=== PATIENT | female | born 1945 | race Caucasian/White ===

== ENCOUNTER → 2019-06-27 12:49 | Outpatient (BNVA) | payer MEDICARE, OTHER, SELFPAY | PROVIDERS: Family Provider Internal Medicine; PCP Internal Medicine; Referring Provider Internal Medicine Rheumatology; Visit Provider Internal Medicine Rheumatology | DX: M05.79 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 systems involvement (principal); Z79.899 Other long term (current) drug therapy | CPT/HCPCS: 36415; 82565; 84460; 85025; 85651; 86140 ==

== ENCOUNTER → 2019-07-06 08:48 | Outpatient (BNVA) | payer MEDICARE, OTHER, SELFPAY | PROVIDERS: Family Provider Internal Medicine; PCP Internal Medicine; Referring Provider Internal Medicine; Visit Provider Internal Medicine Rheumatology | DX: M05.79 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 systems involvement (principal); Z79.899 Other long term (current) drug therapy | CPT/HCPCS: 99213 ==

== ENCOUNTER → 2019-11-13 10:16 | Outpatient (BNVA) | payer MEDICARE, OTHER, SELFPAY | PROVIDERS: Family Provider Internal Medicine; PCP Internal Medicine; Visit Provider Internal Medicine Rheumatology | DX: Z79.899 Other long term (current) drug therapy (principal) | CPT/HCPCS: 36415; 80076; 82565; 85025; 85651; 86140 ==

== ENCOUNTER → 2019-11-26 14:58 | Outpatient (BNVA) | payer MEDICARE, OTHER, SELFPAY | PROVIDERS: Family Provider Internal Medicine; PCP Internal Medicine; Visit Provider Internal Medicine | DX: M05.79 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 systems involvement (principal); Z79.899 Other long term (current) drug therapy; F17.210 Nicotine dependence, cigarettes, uncomplicated; D72.819 Decreased white blood cell count, unspecified | CPT/HCPCS: 99213 ==

== ENCOUNTER → 2019-12-03 09:24 | Outpatient (BNVA) | payer MEDICARE, OTHER, SELFPAY | PROVIDERS: Family Provider Internal Medicine; PCP Internal Medicine; Referring Provider Internal Medicine; Visit Provider Anesthesiology Pain Medicine | DX: M51.36 Other intervertebral disc degeneration, lumbar region (principal); M47.816 Spondylosis without myelopathy or radiculopathy, lumbar region; M25.559 Pain in unspecified hip; M62.830 Muscle spasm of back; Z79.891 Long term (current) use of opiate analgesic | CPT/HCPCS: 99204 ==

== ENCOUNTER → 2019-12-17 12:36 | Outpatient (BNVA) | payer MEDICARE, OTHER, SELFPAY | PROVIDERS: Family Provider Internal Medicine; PCP Internal Medicine; Visit Provider Anesthesiology Pain Medicine | DX: M51.36 Other intervertebral disc degeneration, lumbar region (principal); F17.210 Nicotine dependence, cigarettes, uncomplicated | CPT/HCPCS: 64483; 64484; J1040; J3490 ==

== ENCOUNTER → 2019-12-31 11:20 | Outpatient (BNVA) | payer MEDICARE, OTHER, SELFPAY | PROVIDERS: Family Provider Internal Medicine; PCP Internal Medicine; Visit Provider Anesthesiology Pain Medicine | DX: M51.36 Other intervertebral disc degeneration, lumbar region (principal); M47.816 Spondylosis without myelopathy or radiculopathy, lumbar region; M25.559 Pain in unspecified hip; M62.830 Muscle spasm of back; F17.210 Nicotine dependence, cigarettes, uncomplicated | CPT/HCPCS: 99213 ==

== ENCOUNTER → 2020-01-28 11:14 | Outpatient (BNVA) | payer MEDICARE, OTHER, SELFPAY | PROVIDERS: Family Provider Internal Medicine; PCP Internal Medicine; Referring Provider Internal Medicine; Visit Provider Dermatology | DX: Z12.83 Encounter for screening for malignant neoplasm of skin (principal); Z85.828 Personal history of other malignant neoplasm of skin; Z92.89 Personal history of other medical treatment; L82.1 Other seborrheic keratosis; L82.0 Inflamed seborrheic keratosis; D18.01 Hemangioma of skin and subcutaneous tissue | CPT/HCPCS: 17000; 17003; 99203 ==

== ENCOUNTER → 2020-02-27 12:57 | Outpatient (BNVA) | payer MEDICARE, OTHER, SELFPAY | PROVIDERS: Family Provider Internal Medicine; PCP Internal Medicine; Visit Provider Internal Medicine Rheumatology | DX: Z79.899 Other long term (current) drug therapy (principal); M05.79 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 systems involvement | CPT/HCPCS: 36415; 80053; 82784; 85025; 85651; 86140 ==

== ENCOUNTER → 2020-03-05 12:50 | Outpatient (BNVA) | payer MEDICARE, OTHER, SELFPAY | PROVIDERS: Family Provider Internal Medicine; PCP Internal Medicine; Visit Provider Internal Medicine | DX: M05.79 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 systems involvement (principal); F17.210 Nicotine dependence, cigarettes, uncomplicated; Z79.899 Other long term (current) drug therapy | CPT/HCPCS: 99213 ==

== ENCOUNTER → 2020-06-25 10:56 | Outpatient (BNVA) | payer MEDICARE, OTHER, SELFPAY | PROVIDERS: Family Provider Internal Medicine; PCP Internal Medicine; Visit Provider Internal Medicine Rheumatology | DX: Z79.899 Other long term (current) drug therapy (principal) | CPT/HCPCS: 36415; 80053; 85025; 85651; 86140 ==

== ENCOUNTER → 2020-07-01 12:28 | Outpatient (BNVA) | payer MEDICARE, OTHER, SELFPAY | PROVIDERS: Family Provider Internal Medicine; PCP Internal Medicine; Visit Provider Internal Medicine | DX: M05.79 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 systems involvement (principal); Z79.899 Other long term (current) drug therapy; D72.819 Decreased white blood cell count, unspecified; F17.210 Nicotine dependence, cigarettes, uncomplicated | CPT/HCPCS: 99213 ==

== ENCOUNTER → 2020-10-03 10:17 | Outpatient (BNVA) | payer MEDICARE, OTHER, SELFPAY | PROVIDERS: Family Provider Internal Medicine; PCP Internal Medicine; Visit Provider Internal Medicine | DX: M05.79 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 systems involvement (principal); D72.819 Decreased white blood cell count, unspecified; F17.210 Nicotine dependence, cigarettes, uncomplicated | CPT/HCPCS: 36415; 80053; 85025; 86140; 99214 ==

== ENCOUNTER → 2020-12-09 10:54 | Outpatient (BNVA) | payer MEDICARE, OTHER, SELFPAY | PROVIDERS: Family Provider Internal Medicine; PCP Internal Medicine; Visit Provider Internal Medicine | DX: M05.79 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 systems involvement (principal); M47.816 Spondylosis without myelopathy or radiculopathy, lumbar region; Z79.899 Other long term (current) drug therapy | CPT/HCPCS: 36415; 80053; 85025; 85651; 86140 ==

== ENCOUNTER → 2020-12-16 12:33 | Outpatient (BNVA) | payer MEDICARE, OTHER, SELFPAY | PROVIDERS: Family Provider Internal Medicine; PCP Internal Medicine; Visit Provider Internal Medicine | DX: M05.79 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 systems involvement (principal); M51.36 Other intervertebral disc degeneration, lumbar region; F17.210 Nicotine dependence, cigarettes, uncomplicated | CPT/HCPCS: 99213; 99214 ==

== ENCOUNTER → 2021-04-22 12:42 | Outpatient (BNVA) | payer MEDICARE, OTHER, SELFPAY | PROVIDERS: Family Provider Internal Medicine; PCP Internal Medicine; Visit Provider Internal Medicine | DX: D72.819 Decreased white blood cell count, unspecified (principal); M47.816 Spondylosis without myelopathy or radiculopathy, lumbar region; M05.79 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 systems involvement; Z79.899 Other long term (current) drug therapy | CPT/HCPCS: 80053; 85025; 85651; 86140 ==

== ENCOUNTER → 2021-05-11 12:54 | Outpatient (BNVA) | payer MEDICARE, OTHER, SELFPAY | PROVIDERS: Family Provider Internal Medicine; PCP Internal Medicine; Visit Provider Internal Medicine | DX: M05.79 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 systems involvement (principal); Z79.899 Other long term (current) drug therapy; F17.210 Nicotine dependence, cigarettes, uncomplicated | CPT/HCPCS: 99214 ==

== ENCOUNTER 2021-05-11 13:40 | Outpatient (CLI) | payer MEDICARE, OTHER, SELFPAY ==
--- NOTE | 2021-05-11 13:47 | XR_ITS ---
WS: [id number] SACROILIAC JOINTS TECHNIQUE: AP and oblique imaging is submitted. HISTORY: L40.9 - Psoriasis, unspecified COMPARISON: 02/28/2018 Normal appearance of the SI joints with no sclerosis or erosions. No bone destruction. No soft tissue abnormality. XR/XR sacroiliac jts m 3V [id number] IMPRESSION: No erosions or widening of the SI joints or fusion.
--- NOTE | 2021-05-11 13:47 | XR_ITS ---
WS: [id number] LUMBAR SPINE: 3 VIEWS TECHNIQUE: AP, lateral and L5-S1 spot. HISTORY: M25.559 - Pain in unspecified hip COMPARISON: 02/28/2018 Moderate rotoscoliosis to the RIGHT of the lumbar spine. Severe asymmetric disc space narrowing most significant at L3-4 and L4-5. Marked facet joint arthritis and disc space narrowing throughout. No fr actures. Diffuse osteopenia. No soft tissue mass. SI joints are symmetric bilaterally. No soft tissue abnormalities. Extensive atherosclerosis aorta. XR/XR lumbar spine 2-3V* [id number] IMPRESSION: Marked degenerative rotoscoliosis of the lumbar spine to the RIGHT with asymmet ansley disc space narrowing. No fracture.
--- NOTE | 2021-05-11 13:47 | XR_ITS ---
WS: [id number] LEFT HAND: 2 VIEW(S) TECHNIQUE: PA and lateral. HISTORY: M25.559 - Pain in unspecified hip COMPARISON: None available. Mild diffuse interphalangeal joint space narrowing. No erosion or subluxation. Mild narrowing of the radiocarpal joint. No soft tissue edema. No soft tissue or bone abnormality. XR/XR hand LT 2V [id number] IMPRESSION: Mild osteoarthritis.
--- NOTE | 2021-05-11 13:47 | XR_ITS ---
WS: [id number] RIGHT HAND: 2 VIEW(S) TECHNIQUE: PA and lateral. HISTORY: M25.559 - Pain in unspecified hip COMPARISON: None available. Mild interphalangeal joint space narrowing. No soft tissue edema or swelling. Mild degenerative vann es and joint space narrowing and subluxation at the first CMC joint. No soft tissue or bone abnormality. 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
== END 2021-05-11 13:41 | disposition home or self-care (01) ==
PROVIDERS: PCP Internal Medicine; Visit Provider Internal Medicine
DX: L40.9 Psoriasis, unspecified (principal); M25.559 Pain in unspecified hip
CPT/HCPCS: 72100; 72202; 73120

== ENCOUNTER 2021-09-21 08:46 | Outpatient (CLI) | payer MEDICARE, OTHER, SELFPAY ==
[2021-09-21 09:14] LABS: Basophils % 0.3 %; Eosinophils # 0.2 10^3/uL (0.0-0.8); Eosinophils % 4.7 %; Hematocrit 46.8 % (37.0-47.0); Hemoglobin 15.8 g/dL (11.5-15.3); Lymphocytes # 1.4 10^3/uL (0.8-4.8); Lymphocytes % 37.7 %; Mean Corpuscular HGB Conc 33.8 g/dL (30.0-36.0); Mean Corpuscular Hemoglobin 31.7 pg (28.0-34.0); Mean Corpuscular Volume 93.8 fl (81-99); Mean Platelet Volume 9.2 fL (7.4-10.4); Monocytes # 0.3 10^3/uL (0.2-0.9); Monocytes % 8.3 %; Neutrophils # 1.77 10^3/uL (1.8-7.7); Nucleated Red Blood Cells % 0 %; Platelet Count 218 10^3/cmm (130-400); Red Blood Count 4.99 10^6/uL (4.1-5.3); Red Cell Distribution Width 12.9 % (12.1-15.1); White Blood Count 3.6 10^3/uL (4.0-10.0)
[2021-09-21 09:42] LABS: Alanine Aminotransferase 23 U/L (0-33); Albumin Level 4.3 g/dL (3.5-5.2); Alkaline Phosphatase 47 IU/L (35-105); Aspartate Amino Transferase 19 U/L (0-32); Blood Urea Nitrogen 13 mg/dL (8-23); Calcium 9.5 mg/dL (8.5-10.5); Carbon Dioxide 25 mmol/L (22-29); Chloride 104 mmol/L (98-107); Glucose 138 mg/dL (65-115); Osmolality Calculated 288 mOsm/kg (285-295); Sodium 138 mmol/L (136-145); Total Bilirubin 0.4 mg/dL (0.15-1.2); Total Protein 7.3 g/dL (6.6-8.7)
[2021-09-21 09:47] LABS: Anion Gap 13.3 (5-19); Potassium 4.3 mmol/L (3.5-5.1)
[2021-09-21 10:08] LABS: Erythrocyte Sedimentation Rate 9 mm/hr (0-15)
== END 2021-09-21 08:47 | disposition home or self-care (01) ==
LOC: LAB 08:50
PROVIDERS: PCP Internal Medicine; Visit Provider Internal Medicine
DX: D72.819 Decreased white blood cell count, unspecified (principal); M05.79 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 systems involvement; M47.816 Spondylosis without myelopathy or radiculopathy, lumbar region; Z79.899 Other long term (current) drug therapy
CPT/HCPCS: 80053; 85025; 85651; 86140

== ENCOUNTER → 2021-09-30 11:04 | Outpatient (BNVA) | payer MEDICARE, OTHER, SELFPAY | PROVIDERS: PCP Internal Medicine; Visit Provider Internal Medicine | DX: M05.79 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 systems involvement (principal); Z79.899 Other long term (current) drug therapy; F41.9 Anxiety disorder, unspecified; Z92.21 Personal history of antineoplastic chemotherapy; F17.210 Nicotine dependence, cigarettes, uncomplicated | CPT/HCPCS: 99214 ==

== ENCOUNTER 2022-03-16 09:02 | Outpatient (CLI) | payer MEDICARE, OTHER, SELFPAY ==
[2022-03-16 09:24] LABS: Basophils % 0.5 %; Eosinophils # 0.2 10^3/uL (0.0-0.8); Eosinophils % 4.8 %; Hematocrit 46.8 % (37.0-47.0); Hemoglobin 15.7 g/dL (11.5-15.3); Lymphocytes # 1.5 10^3/uL (0.8-4.8); Lymphocytes % 33.7 %; Mean Corpuscular HGB Conc 33.5 g/dL (30.0-36.0); Mean Corpuscular Hemoglobin 31.4 pg (28.0-34.0); Mean Corpuscular Volume 93.6 fl (81-99); Mean Platelet Volume 9.1 fL (7.4-10.4); Monocytes # 0.5 10^3/uL (0.2-0.9); Monocytes % 10.3 %; Neutrophils % 50.5 %; Nucleated Red Blood Cells % 0 %; Platelet Count 225 10^3/cmm (130-400); Red Cell Distribution Width 13.2 % (12.1-15.1); White Blood Count 4.4 10^3/uL (4.0-10.0)
[2022-03-16 09:27] LABS: Erythrocyte Sedimentation Rate 8 mm/hr (0-15)
[2022-03-16 09:56] LABS: Alanine Aminotransferase 20 U/L (0-33); Albumin Level 4.4 g/dL (3.5-5.2); Alkaline Phosphatase 52 U/L (35-105); Anion Gap 14.3 (5-19); Aspartate Amino Transferase 16 U/L (0-32); Blood Urea Nitrogen 14 mg/dL (8-23); Calcium 9.5 mg/dL (8.5-10.5); Carbon Dioxide 25 mmol/L (22-29); Chloride 103 mmol/L (98-107); Globulin 2.3 g/dL (1.3-4.6); Glucose 97 mg/dL (65-115); Osmolality Calculated 286 mOsm/kg (285-295); Potassium 4.3 mmol/L (3.5-5.1); Sodium 138 mmol/L (136-145); Total Bilirubin 0.5 mg/dL (0.15-1.2); Total Protein 6.7 g/dL (6.6-8.7)
== END 2022-03-16 09:03 | disposition home or self-care (01) ==
LOC: LAB 09:06
PROVIDERS: PCP Internal Medicine; Visit Provider Internal Medicine
DX: M05.79 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 systems involvement (principal); Z79.899 Other long term (current) drug therapy
CPT/HCPCS: 36415; 80053; 85025; 85651; 86140

== ENCOUNTER → 2022-03-17 11:06 | Outpatient (BNVA) | payer MEDICARE, OTHER, SELFPAY | PROVIDERS: PCP Internal Medicine; Visit Provider Internal Medicine | DX: M05.79 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 systems involvement (principal); Z79.899 Other long term (current) drug therapy; F41.9 Anxiety disorder, unspecified | CPT/HCPCS: 99214 ==

== ENCOUNTER 2022-08-10 09:41 | Outpatient (CLI) | payer MEDICARE, OTHER, SELFPAY ==
[2022-08-10 10:43] LABS: Basophils % 0.3 %; Eosinophils # 0.1 10^3/uL (0.0-0.8); Eosinophils % 3.9 %; Lymphocytes # 1.1 10^3/uL (0.8-4.8); Lymphocytes % 33.6 %; Mean Corpuscular HGB Conc 34.1 g/dL (30.0-36.0); Mean Corpuscular Hemoglobin 31.3 pg (28.0-34.0); Mean Corpuscular Volume 91.7 fl (81-99); Mean Platelet Volume 9.1 fL (7.4-10.4); Monocytes # 0.3 10^3/uL (0.2-0.9); Monocytes % 8.9 %; Neutrophils # 1.78 10^3/uL (1.8-7.7); Nucleated Red Blood Cells % 0 %; Platelet Count 210 10^3/cmm (130-400); Red Cell Distribution Width 12.9 % (12.1-15.1); White Blood Count 3.4 10^3/uL (4.0-10.0)
[2022-08-10 11:01] LABS: Erythrocyte Sedimentation Rate 9 mm/hr (0-15)
[2022-08-10 11:10] LABS: Alanine Aminotransferase 21 U/L (0-33); Albumin Level 4.2 g/dL (3.5-5.2); Alkaline Phosphatase 48 U/L (35-105); Anion Gap 16.2 (5-19); Aspartate Amino Transferase 19 U/L (0-32); Blood Urea Nitrogen 15 mg/dL (8-23); Calcium 9.3 mg/dL (8.5-10.5); Carbon Dioxide 24 mmol/L (22-29); Chloride 101 mmol/L (98-107); Globulin 2.5 g/dL (1.3-4.6); Glucose 118 mg/dL (65-115); Osmolality Calculated 286 mOsm/kg (285-295); Potassium 4.2 mmol/L (3.5-5.1); Sodium 137 mmol/L (136-145); Total Bilirubin 0.6 mg/dL (0.15-1.2); Total Protein 6.7 g/dL (6.6-8.7)
== END 2022-08-10 09:42 | disposition home or self-care (01) ==
PROVIDERS: PCP Internal Medicine; Visit Provider Internal Medicine
DX: M05.79 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 systems involvement (principal)
CPT/HCPCS: 80053; 85025; 85651; 86140

== ENCOUNTER → 2022-08-31 14:00 | Outpatient (BNVA) | payer MEDICARE, OTHER, SELFPAY | PROVIDERS: PCP Internal Medicine; Visit Provider Internal Medicine | DX: M05.79 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 systems involvement (principal); Z79.899 Other long term (current) drug therapy; D72.819 Decreased white blood cell count, unspecified | CPT/HCPCS: 99213 ==

== ENCOUNTER 2023-02-07 09:27 | Outpatient (CLI) | payer MEDICARE, OTHER, SELFPAY ==
[2023-02-07 10:17] LABS: Basophils % 0.6 %; Eosinophils # 0.2 10^3/uL (0.0-0.8); Eosinophils % 4.9 %; Hematocrit 46.4 % (36-47); Lymphocytes # 1.3 10^3/uL (0.8-4.8); Lymphocytes % 38.7 %; Mean Corpuscular HGB Conc 33.4 g/dL (30-55); Mean Corpuscular Hemoglobin 30.1 pg (27-33); Mean Corpuscular Volume 90.1 fl (85-98); Mean Platelet Volume 9.3 fL (7.4-10.4); Monocytes # 0.3 10^3/uL (0.2-0.9); Monocytes % 10.1 %; Neutrophils % 45.7 %; Nucleated Red Blood Cells % 0 %; Platelet Count 228 10^3/cmm (157-399); Red Blood Count 5.15 10^6/uL (3.85-5.65); Red Cell Distribution Width 13.5 % (12.1-15.1); White Blood Count 3.28 10^3/uL (3.29-11.43)
[2023-02-07 10:30] LABS: Alanine Aminotransferase 16 U/L (0-33); Albumin Level 4.2 g/dL (3.5-5.2); Alkaline Phosphatase 49 U/L (35-105); Anion Gap 12.4 (5-19); Aspartate Amino Transferase 13 U/L (0-32); Blood Urea Nitrogen 13 mg/dL (8-23); Calcium 8.8 mg/dL (8.5-10.5); Carbon Dioxide 26 mmol/L (22-29); Chloride 104 mmol/L (98-107); Globulin 2.6 g/dL (1.3-4.6); Glucose 112 mg/dL (65-115); Osmolality Calculated 287 mOsm/kg (285-295); Potassium 4.4 mmol/L (3.5-5.1); Sodium 138 mmol/L (136-145); Total Bilirubin 0.4 mg/dL (0.15-1.2); Total Protein 6.8 g/dL (6.6-8.7)
[2023-02-07 10:32] LABS: Erythrocyte Sedimentation Rate 10 mm/hr (0-15)
== END 2023-02-07 09:28 | disposition home or self-care (01) ==
PROVIDERS: PCP Internal Medicine; Visit Provider Internal Medicine
DX: M05.79 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 systems involvement (principal); L57.0 Actinic keratosis; L82.0 Inflamed seborrheic keratosis; L82.1 Other seborrheic keratosis; Z85.828 Personal history of other malignant neoplasm of skin; L81.4 Other melanin hyperpigmentation; D22.39 Melanocytic nevi of other parts of face; L98.8 Other specified disorders of the skin and subcutaneous tissue
CPT/HCPCS: 17000; 17110; 36415; 80053; 85025; 85651; 86140; 99213

== ENCOUNTER → 2023-02-16 15:20 | Outpatient (BNVA) | payer MEDICARE, OTHER, SELFPAY | PROVIDERS: PCP Internal Medicine; Visit Provider Internal Medicine | DX: M05.79 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 systems involvement (principal); Z79.899 Other long term (current) drug therapy; D72.819 Decreased white blood cell count, unspecified | CPT/HCPCS: 99214 ==

== ENCOUNTER 2023-04-19 12:52 | Emergency (ER) | payer MEDICARE, OTHER, SELFPAY ==
[2023-04-19] VITALS (15 sets, daily range): BP systolic 152–200; BP diastolic 64–96; PULSE 67–81; RESP 16–98; TEMP 36.6; O2SAT 92–98; BMI 35.5
--- NOTE | 2023-04-19 13:27 | CT_ITS ---
WS: [id number] CT ANGIOGRAM CEREBRAL AND CAROTID ARTERIES HISTORY: Severe headache with memory loss. TECHNIQUE: Noncontrast CT head first performed. CT angiogram is performed of the carotid and cerebral arteries. During arterial injection imaging is obtained from the skull vertex to the aortic arch in 1.25 mm imaging. Coronal and sagittal reformats are submitted. Additional multi planar reformats of t he carotid and cerebral arteries are submitted, MIP imaging also reviewed. NASCET criteria utilized. All CT scans at [facility] use at least one of these dose optimization techniques: automated exposure control; mA and/or kV adjustment per patient size (includes targeted exams where dose is mat ched to clinical indication); or iterative reconstruction. CONTRAST: Omnipaque 350; 100 mL IV. DLP: 1042.92 mGy.cm COMPARISON: None available. No acute intracranial hemorrhage or edema. Mild atrophy and small vessel ischemic disease. Small lacu tobi infarcts in the basal ganglia. Carotid Angiogram: Right carotid: Common carotid artery: Normally arises from the innominate. Scattered plaque and mild intimal thicken ing. Increasing calcified plaque at the bifurcation. Internal carotid artery: Focal calcified plaque at the carotid bifurcation. Stenosis estimated at les s than 50%. External carotid artery: Patent. Left carotid: Common carotid artery: Calcified plaque at the origin. No high-grade stenosis. Increasing plaque towa rds the bifurcation. Mild intimal thickening and calcified plaque distal common carotid arteries, jonelle nosis less than 50%. Internal carotid artery: High-grade stenosis with calcified plaque involving the proximal ICA. Stenos is is calculated at less than 50%. Visually the stenosis is probably closer to 60%. External carotid artery: Patent. Right vertebral artery: Mild atherosclerotic disease. No occlusion. Left vertebral artery: Mildly dominant with a few scattered areas of plaque. Subclavian arteries: Calcified plaque at the origin of the LEFT subclavian artery. Motion artifact li miting evaluation for percent stenosis. No stenosis RIGHT subclavian artery. Upper thorax: Breathing motion artifact. Thyroid gland: 8 mm RIGHT thyroid nodule. Osseous structures: Unremarkable. CEREBRAL ANGIOGRAM: Intracranial vertebral arteries: Small caliber but patent RIGHT vertebral artery. Normal LEFT vertebr al artery. Basilar artery: No significant stenosis or occlusion. No aneurysm. Intracranial Internal carotid arteries: Normal size with scattered plaque. No occlusions. Approaching 50% stenosis of the cavernous carotid arteries. Middle cerebral arteries: Normal. Anterior cerebral arteries and ACOM: Normal. Posterior cerebral arteries and PCOM's: Normal. Dural venous sinuses are normally enhancing. Mastoid air cells: Normal. Paranasal sinuses: Normal. Calvarium: Normal. IMPRESSION: 1. Proximal LEFT ICA cervical carotid artery stenosis approaching 60%. 2. RIGHT ICA stenosis less than 50%. 3. No cerebral aneurysms. 4. No vertebral or carotid dissection.
--- NOTE | 2023-04-19 13:30 | ECG_ITS ---
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 Measurements Intervals [place] Rate: 77 P: 48 WY: 177 QRS: 17 QRSD: 89 T: 75 QT: 389 QTc: 443 Interpretive Statements SINUS RHYTHM POSSIBLE LEFT ATRIAL ENLARGEMENT [-0.1mV P-WAVE IN V1/V2] NONSPECIFIC ST & T-WAVE ABNORMALITY No previous ECG available for comparison Electronically Signed On 04-19-2023 14:09:01 DINKEY LOCOMOTIVE OPERATOR by Mazin Antony M.D. [id number]
--- NOTE | 2023-04-19 13:30 | ED_ITS ---
HPI - Headache General: Chief Complaint: Headache Stated Complaint: headache Time Seen by Provider: 04/19/23 13:19 Source: patient Mode of arrival: ambulatory Limitations: no limitations History of Present Illness: 78-year-old female states that over the last day she has been having a headache began gradually and is worsened states headache and 8 out of 10. She has no history of high blood pressure today and her blood pressure has been running high and she is hypertensive here. She denies any fevers states she had some slight confusion over the last 1 to 2 days. She has been under increased stress as she had a recent in the family. No vomiting no diarrhea she denies any worsening improving factors. Headache was not a sudden onset thunderclap headache Associated symptoms: Deny chest pain, fever(s), nausea, rash or vomiting Review of Systems Const: Denies: fever(s), chills, body aches or change in appetite Eyes: Denies: blurry vision or eye discomfort ENMT: Denies: throat pain or dental pain Card: Denies: chest pain Resp: Denies: dyspnea GI: Denies: abdominal pain, nausea, vomiting or diarrhea Musc: Reports: neck pain; Denies: back pain Skin/Breast: Denies: rash Neuro: Reports: headache(s) Psych: Denies: depression PFSH ED PFSH: Medical History Anxiety Lumbago 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 systems involvement Social History Smoking and tobacco/nicotine status: never used tobacco/nicotine Alcohol intake: current Alcohol intake frequency: holidays/special occasions only Substance/Drug Use: never Lives independently: No Household members: spouse Marital status: Current occupational status: retired Course Vital Signs: Vital signs: Vital Signs Temperature 97.9 F 04/19/23 13:05 Pulse Rate 75 04/19/23 15:59 Respiratory Rate 17 04/19/23 15:59 Blood Pressure 161/78 04/19/23 15:59 Pulse Oximetry 98 04/19/23 15:59 Oxygen Delivery Me thod Room Air 04/19/23 15:14 MDM - Headache Medical Decision Making Patient presents here with a headache along with hypertension. Her headache here is improved CT head and CT angio normal blood pressures improved as well we will start her on metoprolol she is to follow-up with PCP and return if worsening she understands agrees to plan. Medical Records I reviewed the patient's medical records. Lab Data I reviewed the patient's lab results. 04/19/23 13:32 04/19/23 13:32 Laboratory Results WBC 4.21 10^3/uL (3.29-11.43) 04/19/23 13:32 RBC 4.83 10^6/uL (3.85-5.65) 04/19/23 13:32 Hgb 15.20 g/dL (11.27-16.99) 04/19/23 13:32 Hct 43.5 % (36-47) 04/19/23 13:32 MCV 90.1 fl (85-98) 04/19/23 13:32 MCH 31.5 pg (27-33) 04/19/23 13:32 MCHC 34.9 g/dL (30-55) 04/19/23 13:32 RDW 13.8 % (12.1-15.1) 04/19/23 13:32 Plt Count 189 10^3/cmm (157-399) 04/19/23 13:32 MPV 9.0 fL (7.4-10.4) 04/19/23 13:32 Neut % (Auto) 69.7 % 04/19/23 13:32 Lymph % (Auto) 21.6 % 04/19/23 13:32 Faulk % (Auto) 6.9 % 04/19/23 13:32 Eos % (Auto) 1.4 % 04/19/23 13:32 Baso % (Auto) 0.2 % 04/19/23 13:32 Neut # (Auto) 2.93 10^3/uL (1.8-7.7) 04/19/23 13:32 Lymph # (Auto) 0.9 10^3/uL (0.8-4.8) 04/19/23 13:32 Faulk # (Auto) 0.3 10^3/uL (0.2-0.9) 04/19/23 13:32 Eos # (Auto) 0.1 10^3/uL (0.0-0.8) 04/19/23 13:32 Baso # (Auto) 0.0 10^3/uL (0.0-0.1) 04/19/23 13:32 Nucleated RBC % (auto) 0 % 04/19/23 13:32 Nucleated RBCs # 0.0 /100WBC 04/19/23 13:32 Sodium 134 mmol/L (136-145) L 04/19/23 13:32 Potassium 4.2 mmol/L (3.5-5.1) 04/19/23 13:32 Chloride 99 mmol/L (98-107) 04/19/23 13:32 Carbon Dioxide 23 mmol/L (22-29) 04/19/23 13:32 Anion Gap 16.2 (5-19) 04/19/23 13:32 BUN 16 mg/dL (8-23) 04/19/23 13:32 Creatinine 0.5 mg/dL (0.5-0.9) 04/19/23 13:32 GFR Calculation Not Reportable 04/19/23 13:32 Glucose 119 mg/dL (65-115) H 04/19/23 13:32 Calculated Osmolality 280 mOsm/kg (285-295) L 04/19/23 13:32 Calcium 10.1 mg/dL (8.5-10.5) 04/19/23 13:32 Total Bilirubin 0.7 mg/dL (0.15-1.2) 04/19/23 13:32 AST 17 U/L (0-32) 04/19/23 13:32 ALT 24 U/L (0-33) 04/19/23 13:32 Alkaline Phosphatase 49 U/L (35-105) 04/19/23 13:32 Total Protein 7.1 g/dL (6.6-8.7) 04/19/23 13:32 Albumin 4.4 g/dL (3.5-5.2) 04/19/23 13:32 Globulin 2.7 g/dL (1.3-4.6) 04/19/23 13:32 All radiology interpretation(s) finalized by discharge EKG Data EKG 1: I personally reviewed and interpreted this EKG as follows: EKG interpretation date: 04/19/23 EKG interpretation time: 13:30 Interpretation: nsr hr [address] or t wave abnormalities qrs 89 qtc 421 Discharge Plan Discharge Patient Disposition: Home Clinical Impression: Headache, Hypertension Condition: Stable Prescriptions: New metoprolol succinate 25 mg tablet extended release 24 hr 25 mg PO DAILY Qty: 30 0RF No Action simvastatin 40 mg tablet 40 mg PO QPM calcium carbonate [Calcium 600] 600 mg calcium (1,500 mg) tablet 600 mg PO QDAY cholecalciferol (vitamin D3) 1,000 unit capsule 1,000 unit PO QDAY turmeric 400 mg capsule 400 mg PO DAILY Enbrel SureClick 50 mg/mL (1 mL) pen injector 50 mg SUBCUT .weekly Qty: 4 11RF Rx Instructions: ON TUESDAY zinc acetate 50 mg (zinc) Capsule 50 mg PO DAILY magnesium 200 mg Tablet 200 mg PO DAILY Discharge Orders: Discharge ED (Routine); Ordered 04/19/23 Ordered By: Ed Johnson Referrals: Jason John DO [Primary Care Provider] - 1-3 days Discharge Diet: Advance as tolerated Discharge Activity: Resume usual activity Patient Instructions: Acute Headache (ED), Hypertension (ED) Coding Level of Care Code ED Surgical Sales Representative for Rafita Pavon
[2023-04-19 13:39] LABS: Basophils % 0.2 %; Eosinophils # 0.1 10^3/uL (0.0-0.8); Eosinophils % 1.4 %; Hematocrit 43.5 % (36-47); Lymphocytes # 0.9 10^3/uL (0.8-4.8); Lymphocytes % 21.6 %; Mean Corpuscular HGB Conc 34.9 g/dL (30-55); Mean Corpuscular Hemoglobin 31.5 pg (27-33); Mean Corpuscular Volume 90.1 fl (85-98); Monocytes # 0.3 10^3/uL (0.2-0.9); Monocytes % 6.9 %; Neutrophils # 2.93 10^3/uL (1.8-7.7); Neutrophils % 69.7 %; Nucleated Red Blood Cells % 0 %; Platelet Count 189 10^3/cmm (157-399); Red Blood Count 4.83 10^6/uL (3.85-5.65); Red Cell Distribution Width 13.8 % (12.1-15.1); White Blood Count 4.21 10^3/uL (3.29-11.43)
[2023-04-19] MEDS: labetalol 5 mg/mL SDV 20mL 10 MG IVP (13:42)
[2023-04-19] MEDS: ondansetron 2 mg/ML SDV 2 mL 4 MG IVP (13:43)
[2023-04-19] MEDS: morphine 4 mg/mL SDV 1 mL IVP (13:43)
[2023-04-19 14:09] LABS: Alanine Aminotransferase 24 U/L (0-33); Albumin Level 4.4 g/dL (3.5-5.2); Alkaline Phosphatase 49 U/L (35-105); Anion Gap 16.2 (5-19); Aspartate Amino Transferase 17 U/L (0-32); Blood Urea Nitrogen 16 mg/dL (8-23); Calcium 10.1 mg/dL (8.5-10.5); Carbon Dioxide 23 mmol/L (22-29); Chloride 99 mmol/L (98-107); Globulin 2.7 g/dL (1.3-4.6); Glucose 119 mg/dL (65-115); Osmolality Calculated 280 mOsm/kg (285-295); Potassium 4.2 mmol/L (3.5-5.1); Sodium 134 mmol/L (136-145); Total Bilirubin 0.7 mg/dL (0.15-1.2); Total Protein 7.1 g/dL (6.6-8.7)
[2023-04-19] MEDS: hyDRALAzine 20 mg/mL INJ 1 mL 10 MG IVP (14:39)
[2023-04-19] MEDS: iohexol 350 mg/mL 500 mL Btl (per mL) IV (14:44)
== END 2023-04-19 16:06 | disposition home or self-care (01) ==
PROVIDERS: Emergency Provider Emergency Medicine; PCP Internal Medicine
DX: R51.9 Headache, unspecified (principal); I10 Essential (primary) hypertension
CPT/HCPCS: 70496; 70498; 80053; 85025; 93005; 96374; 96375; 99285; J0360; J2270; J2405; J3490; Q9967

== ENCOUNTER 2023-04-21 21:24 | Emergency (ER) | payer MEDICARE, OTHER, SELFPAY ==
[2023-04-21 21:28] VITALS: BP 205/85; PULSE 65; RESP 16; TEMP 36.4; O2SAT 94; BMI 35.5
--- NOTE | 2023-04-21 21:36 | ECG_ITS ---
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 Measurements Intervals [place] Rate: 60 P: 67 [place]: 187 QRS: 67 QRSD: 89 T: 76 QT: 415 QTc: 418 Interpretive Statements SINUS RHYTHM Compared to ECG 04/19/2023 13:30:23 T-wave abnormality no longer present Electronically Signed On 04-22-2023 20:45:57 DRESSER TENDER by Elena Linares M.D. [id number]
[2023-04-21 22:04] VITALS: BP 202/95
[2023-04-21] MEDS: cloNIDine 0.1 mg Tablet 0.2 MG PO (22:04)
--- NOTE | 2023-04-21 22:12 | PC.NURSE ---
Pt. states that her doctor told her that she can not take ibuprofen or nsaids because she takes enbrel.
[2023-04-21] MEDS: HYDROcodone-acetaminophen 5-325 mg Tablet 1 TAB PO (22:23)
[2023-04-21 22:29] LABS: Magnesium 1.9 mg/dL (1.7-2.3)
--- NOTE | 2023-04-21 22:49 | ED_ITS ---
HPI - Extremity Problem General: Chief complaint: Extremity Injury, Upper Stated complaint: Rt Arm Pain Time Seen by Provider: 04/21/23 21:27 History of Present Illness: Patient presents to the ER with complaints of pain from her elbow down to her right hand. Patient states she does have RA which usually responds to cold compresses but this has not responded to cold compresses. Patient states that pain is mostly in her hand and wrist. Patient does have a history of hypertension which she was just given a prescription for metoprolol for within the last several days. Patient says she did take metoprolol today. Blood pressure upon arrival was 205/85. Review of Systems General: Reports: 10 or more systems reviewed and unremarkable except in HPI and below PFSH ED PFSH: Medical History Anxiety Lumbago 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 systems involvement Social History Smoking and tobacco/nicotine status: never used tobacco/nicotine Alcohol intake: current Alcohol intake frequency: holidays/special occasions only Substance/Drug Use: never Lives independently: No Household members: spouse Marital status: Current occupational status: retired Physical Exam Const: COMMON NORMALS: no acute distress, average body habitus, patient oriented x3, no limitations, healthy appearing, alert and well nourished HENMT: COMMON NORMALS: normocephalic, atraumatic, hearing grossly normal bilaterally, external ears normal, Normal external nose present, moist oral mucous membranes and oropharynx normal HEAD & SCALP: normocephalic and atraumatic NOSE: Normal external nose present EXTERNAL EAR: Yes external ears normal Neck/C-Spine: COMMON NORMALS: full ROM, no lymphadenopathy, supple, no meningeal signs, no JVD and Thyroid normal THYROID: Thyroid normal Lymph: LYMPHATIC: no lymphadenopathy noted Chest: COMMONS NORMALS: normal inspection of the chest and normal palpation of entire chest wall Resp: COMMON NORMALS: normal respiratory effort, No retractions, No use of accessory muscles and clear to auscultation bilaterally AUSCULTATION: clear to auscultation bilaterally Cardio: COMMON NORMALS: no JVD, regular rate, regular rhythm, S1 normal heart sound present, S2 normal heart sound present, No gallops present (Cardio), No clicks present (Cardio), No murmurs present (Cardio) and No rub (Cardio) RATE: regular rate RHYTHM: regular rhythm HEART SOUNDS: S1 normal heart sound present and S2 normal heart sound present GI: COMMON NORMALS: Normal to inspection, nondistended, normoactive bowel sounds present, Soft to palpation, non-tender, No hepatosplenomegaly present and no masses PALPATION: Yes Soft to palpation and Yes No hepatosplenomegaly present Neuro: COMMON NORMALS: patient oriented x3 SENSORIUM/ORIENTATION: Yes alert MENINGEAL SIGNS: Yes no meningeal signs Course Vital Signs: Vital signs: Vital Signs Temperature 97.6 F 04/21/23 21:28 Pulse Rate 65 04/21/23 21:28 Respiratory Rate 16 04/21/23 21:28 Blood Pressure 168/85 04/21/23 22:59 Pulse Oximetry 94 04/21/23 21:28 Oxygen Delivery Me thod Room Air 04/21/23 21:28 MDM - Extremity (Nontraumatic) Medical Decision Making Lab work was reviewed from 04/19/2023 as well as the note from the ER physician. Physical exam did not reveal an obvious source of her pain. Patient was given clonidine 0.2 mg p.o. for her blood pressure her blood pressure improved down to 168/85 and pain was resolved. Patient will be given a small prescription for clonidine 0.1 mg to take when her blood pressure greater than 150 until she can follow-up with her PCP for further evaluation and treatment. Differential Diagnosis Unlikely herpes zoster, gout, cellulitis, superficial thrombophlebitis, deep venous thrombosis of upper extremity, lower extremity edema or deep vein thrombosis of lower extremity Medical Records I reviewed the patient's medical records. Lab Data I reviewed the patient's lab results. Laboratory Results Magnesium 1.9 mg/dL (1.7-2.3) 04/21/23 21:59 C-Reactive Protein 3.0 mg/L (0.0-4.9) 04/21/23 21:59 No radiology studies performed this visit EKG Data EKG 1: I personally reviewed and interpreted this EKG as follows: EKG interpretation date: 04/21/23 EKG interpretation time: 21:36 Prior EKG tracings: not available for review Interpretation: EKG showed ventricular rate 60 bpm, SD interval 187, QRS duration 89, QTc of 417, sinus rhythm, no ST-T wave changes Discharge Plan Discharge Patient Disposition: Home Clinical Impression: Arm pain, right Hypertension Qualifiers: Hypertension type: unspecified Qualified Code(s): I10 - Essential (primary) hypertension Condition: Stable Prescriptions: New clonidine HCl 0.1 mg tablet 0.1 mg PO Q8H PRN (Reason: Blood pressure greater than 150) Qty: 30 0RF No Action simvastatin 40 mg tablet 40 mg PO QPM calcium carbonate [Calcium 600] 600 mg calcium (1,500 mg) tablet 600 mg PO QDAY cholecalciferol (vitamin D3) 1,000 unit capsule 1,000 unit PO QDAY turmeric 400 mg capsule 400 mg PO DAILY Enbrel SureClick 50 mg/mL (1 mL) pen injector 50 mg SUBCUT .weekly Qty: 4 11RF Rx Instructions: ON TUESDAY zinc acetate 50 mg (zinc) Capsule 50 mg PO DAILY magnesium 200 mg Tablet 200 mg PO DAILY metoprolol succinate 25 mg tablet extended release 24 hr 25 mg PO DAILY Qty: 30 0RF Discharge Orders: Discharge ED (Routine); Ordered 04/21/23 Ordered By: Dante Cornell Referrals: Jason John DO [Primary Care Provider] - 1 week Patient Instructions: Hypertension (ED), Arm Pain (ED) Activity Restrictions/Additional Instructions: Please take all medicine as directed. Please follow-up with your family practice physician within the next 7 to 10 days for further evaluation and treatment for your right arm pain and your blood pressure. Coding Level of Care Code ED Financial Services Agent for Rafita Pavon
[2023-04-21 22:59] VITALS: BP 168/85
[2023-04-21 23:01] VITALS: BP 156/73; PULSE 59; RESP 20; O2SAT 92
== END 2023-04-21 23:15 | disposition home or self-care (01) ==
PROVIDERS: Emergency Provider Emergency Medicine; PCP Internal Medicine
DX: M79.601 Pain in right arm (principal); I10 Essential (primary) hypertension
CPT/HCPCS: 83735; 86140; 93005; 99284

== ENCOUNTER 2023-05-20 08:11 | Outpatient (CLI) | payer MEDICARE, OTHER, SELFPAY ==
[2023-05-20 08:39] LABS: Basophils % 0.2 %; Eosinophils # 0.3 10^3/uL (0.0-0.8); Eosinophils % 7.5 %; Hematocrit 45.9 % (36-47); Lymphocytes # 1.7 10^3/uL (0.8-4.8); Lymphocytes % 40.2 %; Mean Corpuscular Hemoglobin 31.4 pg (27-33); Mean Corpuscular Volume 92.4 fl (85-98); Mean Platelet Volume 9.5 fL (7.4-10.4); Monocytes # 0.4 10^3/uL (0.2-0.9); Monocytes % 8.7 %; Neutrophils # 1.79 10^3/uL (1.8-7.7); Neutrophils % 43.2 %; Nucleated Red Blood Cells % 0 %; Platelet Count 196 10^3/cmm (157-399); Red Blood Count 4.97 10^6/uL (3.85-5.65); Red Cell Distribution Width 13.8 % (12.1-15.1); White Blood Count 4.15 10^3/uL (3.29-11.43)
[2023-05-20 08:47] LABS: Alanine Aminotransferase 16 U/L (0-33); Albumin Level 4.2 g/dL (3.5-5.2); Alkaline Phosphatase 59 U/L (35-105); Anion Gap 16.7 (5-19); Aspartate Amino Transferase 15 U/L (0-32); Blood Urea Nitrogen 14 mg/dL (8-23); Calcium 9.4 mg/dL (8.5-10.5); Carbon Dioxide 23 mmol/L (22-29); Chloride 100 mmol/L (98-107); Glucose 119 mg/dL (65-115); Osmolality Calculated 282 mOsm/kg (285-295); Potassium 4.7 mmol/L (3.5-5.1); Sodium 135 mmol/L (136-145); Total Bilirubin 0.8 mg/dL (0.15-1.2); Total Protein 7.2 g/dL (6.6-8.7)
[2023-05-20 08:54] LABS: Erythrocyte Sedimentation Rate 11 mm/hr (0-15)
== END 2023-05-20 08:12 | disposition home or self-care (01) ==
LOC: LAB 08:12
PROVIDERS: PCP Internal Medicine; Visit Provider Internal Medicine
DX: M05.79 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 systems involvement (principal); Z79.899 Other long term (current) drug therapy
CPT/HCPCS: 36415; 80053; 85025; 85651; 86140

== ENCOUNTER → 2023-05-26 13:58 | Outpatient (BNVA) | payer MEDICARE, OTHER, SELFPAY | PROVIDERS: PCP Family Medicine; Visit Provider Internal Medicine | DX: M05.79 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 systems involvement (principal); Z79.899 Other long term (current) drug therapy; D72.819 Decreased white blood cell count, unspecified | CPT/HCPCS: 99214 ==

== ENCOUNTER → 2023-11-08 09:17 | Outpatient (BNVA) | payer MEDICARE, OTHER, SELFPAY | PROVIDERS: PCP Family Medicine; Referring Provider Electrodiagnostic Medicine; Visit Provider Anesthesiology Pain Medicine | DX: M54.16 Radiculopathy, lumbar region (principal); M51.36 Other intervertebral disc degeneration, lumbar region; M47.816 Spondylosis without myelopathy or radiculopathy, lumbar region; M62.830 Muscle spasm of back | CPT/HCPCS: 99204 ==

== ENCOUNTER 2023-11-14 10:59 | Outpatient (CLI) | payer MEDICARE, OTHER, SELFPAY ==
--- NOTE | 2023-11-14 11:45 | MR_ITS ---
WS: [id number] MRI LUMBAR SPINE NONCONTRAST TECHNIQUE: Sagittal T1, T2 and STIR imaging. Axial T1 and T2 imaging. CLINICAL INFORMATION: M54.16 - Radiculopathy, lumbar region COMPARISON: MRI 2018 FINDINGS: Mild lumbar curve. Disc space narrowing worse at L3-4. Incidental Tarlov cyst in the sacrum. L1-L2: Mild facet arthropathy. Spinal canal and foramina are patent. L2-L3: Mild disc bulging with slight narrowing LEFT subarticular recess. Foramen are patent. Mild fac et arthropathy. L3-L4: Disc osteophyte complex with impingement of the LEFT subarticular recess. Moderate LEFT forami nal narrowing. Moderate central canal stenosis appears similar compared to previous. Mild facet arthr opathy. L4-L5: Mild disc bulge with mild central canal stenosis. Impingement RIGHT subarticular recess and tr aversing RIGHT L5 nerve root. Moderate central canal stenosis at this level appears progressed. Mercedes en are patent. Moderate facet arthropathy. L5-S1: Disc osteophyte complex with endplate ridging. Advanced facet arthropathy. Mild RIGHT and no s ignificant LEFT foraminal narrowing. Visualized pelvic bony structures: Normal. Paravertebral soft tissues: Normal. Partially visualized large LEFT renal cyst measuring 6.3 cm. Smaller RIGHT renal cyst measuring 1.6 c m. Slightly ectatic infrarenal abdominal aorta measuring 2.4 x 2.5 cm AP by transverse. MR/MR lumbar spine wo con* [id number] IMPRESSION: 1. Stable moderate central canal stenosis L3-L4 and progressed L4-L5. Impingem ent on the LEFT subarticular recess L3-L4 and RIGHT subarticular recess L4-5. 2. Moderate LEFT L3-4 and mild RIGHT L5-S1 foraminal narrowing appears similar to previous. 3. Moderate facet arthropathy L4-L5 and L5-S1.
== END 2023-11-14 11:00 | disposition home or self-care (01) ==
LOC: RAD 10:59
PROVIDERS: PCP Family Medicine; Visit Provider Anesthesiology Pain Medicine
DX: M54.16 Radiculopathy, lumbar region (principal); M48.061 Spinal stenosis, lumbar region without neurogenic claudication; G96.191 Perineural cyst; M47.816 Spondylosis without myelopathy or radiculopathy, lumbar region; M51.36 Other intervertebral disc degeneration, lumbar region; M25.78 Osteophyte, vertebrae; M47.817 Spondylosis without myelopathy or radiculopathy, lumbosacral region; Q61.02 Congenital multiple renal cysts
CPT/HCPCS: 72148

== ENCOUNTER → 2023-11-15 13:30 | Outpatient (BNVA) | payer MEDICARE, OTHER, SELFPAY | PROVIDERS: PCP Family Medicine; Visit Provider Anesthesiology Pain Medicine | DX: M54.16 Radiculopathy, lumbar region (principal) | CPT/HCPCS: 64483; 64484; J1100; J3490 ==

== ENCOUNTER → 2023-11-29 13:53 | Outpatient (BNVA) | payer MEDICARE, OTHER, SELFPAY | PROVIDERS: PCP Family Medicine; Visit Provider Anesthesiology Pain Medicine | DX: M51.17 Intervertebral disc disorders with radiculopathy, lumbosacral region (principal); M51.36 Other intervertebral disc degeneration, lumbar region; M47.816 Spondylosis without myelopathy or radiculopathy, lumbar region; M62.830 Muscle spasm of back | CPT/HCPCS: 99214 ==

== ENCOUNTER 2024-01-03 07:52 | Outpatient (CLI) | payer MEDICARE, OTHER, SELFPAY ==
[2024-01-03 08:49] LABS: Basophils % 0.3 %; Eosinophils # 0.3 10^3/uL (0.0-0.8); Eosinophils % 7.3 %; Hematocrit 43.4 % (36-47); Lymphocytes # 1.8 10^3/uL (0.8-4.8); Lymphocytes % 48.8 %; Mean Corpuscular HGB Conc 33.9 g/dL (30-55); Mean Corpuscular Hemoglobin 31.7 pg (27-33); Mean Corpuscular Volume 93.7 fl (85-98); Mean Platelet Volume 8.9 fL (7.4-10.4); Monocytes # 0.3 10^3/uL (0.2-0.9); Monocytes % 7.8 %; Neutrophils # 1.33 10^3/uL (1.8-7.7); Neutrophils % 35.8 %; Nucleated Red Blood Cells % 0 %; Platelet Count 202 10^3/cmm (157-399); Red Blood Count 4.63 10^6/uL (3.85-5.65); Red Cell Distribution Width 13.2 % (12.1-15.1); White Blood Count 3.71 10^3/uL (3.29-11.43)
[2024-01-03 09:14] LABS: Alanine Aminotransferase 19 U/L (0-33); Albumin Level 4.2 g/dL (3.5-5.2); Alkaline Phosphatase 44 U/L (35-105); Aspartate Amino Transferase 15 U/L (0-32); Globulin 2.7 g/dL (1.3-4.6); Total Bilirubin 0.5 mg/dL (0.15-1.2); Total Protein 6.9 g/dL (6.6-8.7)
== END 2024-01-03 07:53 | disposition home or self-care (01) ==
LOC: LAB 07:55
PROVIDERS: PCP Family Medicine; Visit Provider Internal Medicine Rheumatology
DX: M05.79 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 systems involvement (principal)
CPT/HCPCS: 36415; 80076; 82565; 85025; 86140

== ENCOUNTER → 2024-01-10 13:03 | Outpatient (BNVA) | payer MEDICARE, OTHER, SELFPAY | PROVIDERS: PCP Family Medicine; Visit Provider Internal Medicine Rheumatology | DX: M05.79 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 systems involvement (principal); Z79.899 Other long term (current) drug therapy; Z71.85 Encounter for immunization safety counseling; Z11.1 Encounter for screening for respiratory tuberculosis; Z11.59 Encounter for screening for other viral diseases | CPT/HCPCS: 99214 ==

== ENCOUNTER → 2024-02-29 09:52 | Outpatient (BNVA) | payer MEDICARE, OTHER, SELFPAY | PROVIDERS: PCP Family Medicine; Visit Provider Nurse Practitioner Family | DX: D48.5 Neoplasm of uncertain behavior of skin (principal); L82.1 Other seborrheic keratosis; L81.4 Other melanin hyperpigmentation; D22.39 Melanocytic nevi of other parts of face; L98.8 Other specified disorders of the skin and subcutaneous tissue; L57.0 Actinic keratosis; L82.0 Inflamed seborrheic keratosis; Z85.828 Personal history of other malignant neoplasm of skin | CPT/HCPCS: 11102; 17000; 17110; 99213 ==

== ENCOUNTER → 2024-05-29 08:55 | Outpatient (BNVA) | payer MEDICARE, OTHER, SELFPAY | PROVIDERS: PCP Family Medicine; Visit Provider Nurse Practitioner Family | DX: D04.39 Carcinoma in situ of skin of other parts of face (principal); L82.1 Other seborrheic keratosis; L81.4 Other melanin hyperpigmentation; D22.39 Melanocytic nevi of other parts of face; L98.8 Other specified disorders of the skin and subcutaneous tissue; L23.9 Allergic contact dermatitis, unspecified cause; Z08 Encounter for follow-up examination after completed treatment for malignant neoplasm; Z85.828 Personal history of other malignant neoplasm of skin; L57.0 Actinic keratosis | CPT/HCPCS: 17000; 99214 ==

== ENCOUNTER 2024-07-03 10:33 | Outpatient (CLI) | payer MEDICARE, OTHER, SELFPAY ==
[2024-07-03 10:52] LABS: Basophils % 0.7 %; Eosinophils # 0.3 10^3/uL (0.0-0.8); Eosinophils % 5.9 %; Hematocrit 42.7 % (36-47); Lymphocytes # 1.5 10^3/uL (0.8-4.8); Lymphocytes % 34.9 %; Mean Corpuscular HGB Conc 34.4 g/dL (30-55); Mean Corpuscular Hemoglobin 32.2 pg (27-33); Mean Corpuscular Volume 93.6 fl (85-98); Mean Platelet Volume 8.9 fL (7.4-10.4); Monocytes # 0.4 10^3/uL (0.2-0.9); Monocytes % 9.6 %; Neutrophils # 2.14 10^3/uL (1.8-7.7); Neutrophils % 48.7 %; Nucleated Red Blood Cells % 0 %; Platelet Count 230 10^3/cmm (157-399); Red Blood Count 4.56 10^6/uL (3.85-5.65); Red Cell Distribution Width 12.9 % (12.1-15.1); White Blood Count 4.39 10^3/uL (3.29-11.43)
[2024-07-03 11:07] LABS: Alanine Aminotransferase 22 U/L (0-33); Albumin Level 4.2 g/dL (3.5-5.2); Alkaline Phosphatase 50 U/L (35-105); Aspartate Amino Transferase 18 U/L (0-32); Globulin 2.7 g/dL (1.3-4.6); Total Bilirubin 0.5 mg/dL (0.15-1.2); Total Protein 6.9 g/dL (6.6-8.7)
== END 2024-07-03 10:34 | disposition home or self-care (01) ==
LOC: LAB 10:34
PROVIDERS: PCP Family Medicine; Visit Provider Internal Medicine Rheumatology
DX: M05.79 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 systems involvement (principal); Z79.899 Other long term (current) drug therapy
CPT/HCPCS: 36415; 80076; 82565; 85025; 85652; 86140

== ENCOUNTER 2024-07-05 08:54 | Emergency (ER) | payer MEDICARE, OTHER, SELFPAY ==
[2024-07-05 09:01] VITALS: BP 197/79; PULSE 68; RESP 16; TEMP 36.9; O2SAT 96; BMI 35.5
--- NOTE | 2024-07-05 09:02 | ED_ITS ---
HPI - General Adult General: Chief complaint: Fall Stated complaint: fall, split lip Time Seen by Provider: 07/05/24 08:56 Source: patient Mode of arrival: ambulatory Limitations: no limitations History of Present Illness: 79-year-old female who states that she t ripped and fell today at home she did hit her head and face on a table. She has a mild headache denies any loss conscious has a laceration to her right lower lip. She denies any neck pain denies any other injuries with the fall Associated symptoms: Reports headache(s); Deny chest pain, dyspnea, nausea, rash or vomiting Related Data Home Medications Medication Instructions Recorded Confirmed calcium carbonate (Calcium 600) 600 mg PO QDAY 07/02/19 07/05/24 cholecalciferol (vitamin D3) 25 1,000 unit PO QDAY 07/02/19 07/05/24 mcg (1,000 unit) capsule simvastatin 40 mg tablet 40 mg PO QPM 07/02/19 07/05/24 turmeric 400 mg capsule 400 mg PO DAILY 01/28/20 07/05/24 magnesium 200 mg tablet 200 mg PO DAILY 04/19/23 07/05/24 zinc acetate 50 mg (zinc) capsule 50 mg PO DAILY 04/19/23 07/05/24 viviana seed oil-omega 3-6-9 1,000 mg 1 cap PO DAILY 11/08/23 07/05/24 (580 mg) capsule chlorthalidone 25 mg tablet 25 mg PO DAILY 11/08/23 07/05/24 lisinopril 40 mg tablet 40 mg PO DAILY 11/08/23 07/05/24 Previous Rx's Medication Instructions Recorded metoprolol succinate 25 mg 25 mg PO DAILY #30 tabs 04/19/23 tablet,extended release 24 hr Allergies Allergy/AdvReac Type Severity Reaction Status Date / Time ibuprofen Allergy Mild swelling Verified 07/05/24 09:08 Review of Systems Const: Denies: fever(s), chills, body aches or change in appetite ENMT: Denies: throat pain or dental pain Card: Denies: chest pain Resp: Denies: dyspnea GI: Denies: abdominal pain, nausea, vomiting or diarrhea Musc: Denies: neck pain or back pain Skin/Breast: Denies: rash Neuro: Reports: headache(s) PFSH ED PFSH: Medical History Immunization counseling High risk medication use Anxiety Lumbago 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 systems involvement Social History Smoking and tobacco/nicotine status: never used tobacco/nicotine Alcohol intake: current Alcohol intake frequency: holidays/special occasions only Substance/Drug Use: never Lives independently: No Household members: spouse Marital status: Current occupational status: retired Physical Exam Const: COMMON NORMALS: no acute distress, patient oriented x3 and healthy appearing HENMT: COMMON NORMALS: atraumatic HEAD & SCALP: atraumatic Eye: COMMON NORMALS: conjunctivae normal CONJUNCTIVA: Yes conjunctivae normal Neck/C-Spine: COMMON NORMALS: full ROM and supple Chest: COMMONS NORMALS: normal inspection of the chest and normal palpation of entire chest wall Resp: COMMON NORMALS: normal respiratory effort, No retractions, No use of acc essory muscles and clear to auscultation bilaterally AUSCULTATION: clear to auscultation bilaterally Cardio: COMMON NORMALS: regular rate, regular rhythm and No murmurs present (Cardio) RATE: regular rate RHYTHM: regular rhythm GI: COMMON NORMALS: Normal to inspection, nondistended, normoactive bowel sounds present, Soft to palpation, non-tender and no masses PALPATION: Yes Soft to palpation Extremity: COMMON NORMALS: normal to inspection and full ROM Neuro: COMMON NORMALS: patient oriented x3, moves all extremities and no focal motor deficits Psych: COMMON NORMALS: mental status grossly normal, Normal thought process present and cooperative THOUGHT PROCESS: Normal thought process present Skin: COMMON NORMALS: no rashes or lesions noted and no wounds GENERAL SKIN EXAM: no rashes or lesions noted Procedures Laceration Laceration 1: Site: lip Side (If applicable): right Size (cm): 4 Description: involves inocente border Depth: simple, single layer Local Anesthetic: lidocaine 1% Amount of anesthesia used (mL): 8 Pre-repair: wound explored Skin layer closed with: nylon Size (cm): 5-0 Number of sutures: 7 Technique: simple, interrupted Course Vital Signs: Vital signs: Vital Signs Temperature 98.4 F 07/05/24 09:07 Pulse Rate 68 07/05/24 09:07 Respiratory Rate 16 07/05/24 09:07 Blood Pressure 197/79 07/05/24 09:07 Pulse Oximetry 96 07/05/24 09:07 MDM - General Adult Medical Decision Making Patient presents here with lip laceration on the scalp hematoma after a fall head CT was normal did repair the lip laceration she is to follow-up in 7 days to have sutures removed return with any other problems she understands agrees to plan no signs of any cervical injury no cervical spine tenderness Medical Records I reviewed the patient's medical records. Lab Data Radiology Impressions Head CT 07/05/24 09:02 IMPRESSION: 1. No acute intracranial hemorrhage or edema. 2. 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 Small lacunar infarcts in the basal ganglia. 3. Small frontal scalp hematoma. All radiology interpretation(s) finalized by discharge Discharge Plan Discharge Patient Disposition: Home Clinical Impression: Closed head injury, Laceration of lip Fall Qualifiers: Encounter type: initial encounter Qualified Code(s): W19.XXXA - Unspecified fall, initial encounter Condition: Stable Prescriptions: No Action simvastatin 40 mg tablet 40 mg PO QPM calcium carbonate [Calcium 600] 600 mg calcium (1,500 mg) tablet 600 mg PO QDAY cholecalciferol (vitamin D3) 1,000 unit capsule 1,000 unit PO QDAY turmeric 400 mg capsule 400 mg PO DAILY chlorthalidone 25 mg tablet 25 mg PO DAILY lisinopril 40 mg tablet 40 mg PO DAILY viviana seed oil-omega 3-6-9 1,000 mg (580 mg) capsule 1 cap PO DAILY zinc acetate 50 mg (zinc) Capsule 50 mg PO DAILY magnesium 200 mg Tablet 200 mg PO DAILY metoprolol succinate 25 mg tablet extended release 24 hr 25 mg PO DAILY Qty: 30 0RF Discharge Orders: Discharge ED (Routine); Ordered 07/05/24 Ordered By: Ed Johnson Referrals: ZIGGY LOCKWOOD MD [Primary Care Provider] - 4-7 days Discharge Diet: Advance as tolerated Discharge Activity: Resume usual activity Patient Instructions: Laceration (ED), Stitches Removal (ED) Coding Level of Care Code ED Transfer 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
--- NOTE | 2024-07-05 09:02 | CT_ITS ---
WS: [id number] CT HEAD NONCONTRAST HISTORY: fall TECHNIQUE: Contiguous axial imaging performed through the brain. Bone and soft tissue windows. Sagitt al and coronal reformats reviewed. All CT scans at [facility] use at least one of these dose optimization techniques: automated exposure control; mA and/or kV adjustment per patient size (includ es targeted exams where dose is matched to clinical indication); or iterative reconstruction. DLP: 1022.65 mGy.cm COMPARISON: 04/19/2023 No acute intracranial hemorrhage, midline shift or mass effect. Mild symmetric atrophy and small vessel disease. Small lacunar infarcts in the basal ganglia. Mild bi lateral cerebellar atrophy. Ventricles: Normal size with no hydrocephalus. No inferior displacement of the cerebellar tonsils. Paranasal sinuses: Mucoperiosteal thickening in the RIGHT frontal sinus. Mastoid air cells: Well pneumatized. Calvarium and scalp: No skull fracture. Small soft tissue hematoma over the mid frontal bone, just gr eater to the LEFT of midline.. CT/CT head wo con* [id number] IMPRESSION: 1. No acute intracranial hemorrhage or edema. 2. 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 Small lacun ar infarcts in the basal ganglia. 3. Small frontal scalp hematoma.
[2024-07-05 09:07] VITALS: BP 197/79; PULSE 68; RESP 16; TEMP 36.9; O2SAT 96
[2024-07-05] MEDS: BUPivacaine 0.5% INJ 10 mL INJECTION (09:54)
[2024-07-05 10:28] VITALS: BP 139/93; PULSE 69; O2SAT 96
== END 2024-07-05 10:30 | disposition home or self-care (01) ==
PROVIDERS: Emergency Provider Emergency Medicine; PCP Family Medicine
DX: S01.511A Laceration without foreign body of lip, initial encounter (principal); S09.8XXA Other specified injuries of head, initial encounter; W19.XXXA Unspecified fall, initial encounter
CPT/HCPCS: 13132; 70450; 99284; J3490

== ENCOUNTER → 2024-07-10 09:37 | Outpatient (BNVA) | payer MEDICARE, OTHER, SELFPAY | PROVIDERS: PCP Family Medicine; Visit Provider Internal Medicine Rheumatology | DX: M05.79 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 systems involvement (principal); Z79.899 Other long term (current) drug therapy; Z71.85 Encounter for immunization safety counseling | CPT/HCPCS: 17110; 99213; 99214 ==

== ENCOUNTER → 2024-10-24 08:19 | Outpatient (BNVA) | payer MEDICARE, OTHER, SELFPAY | PROVIDERS: PCP Family Medicine; Visit Provider Nurse Practitioner Family | DX: L82.1 Other seborrheic keratosis (principal); L57.8 Other skin changes due to chronic exposure to nonionizing radiation; L81.4 Other melanin hyperpigmentation; D22.39 Melanocytic nevi of other parts of face; L82.0 Inflamed seborrheic keratosis; L53.8 Other specified erythematous conditions; R20.8 Other disturbances of skin sensation; R58 Hemorrhage, not elsewhere classified; L29.89 Other pruritus; D48.5 Neoplasm of uncertain behavior of skin; L57.0 Actinic keratosis | CPT/HCPCS: 11102; 17000; 17110; 99213 ==

== ENCOUNTER 2024-10-29 10:15 | Outpatient (CLI) | payer MEDICARE, OTHER, SELFPAY ==
[2024-10-29 11:10] LABS: Basophils # 0.1 10^3/uL (0.0-0.1); Eosinophils # 0.2 10^3/uL (0.0-0.8); Eosinophils % 4.6 %; Hematocrit 43.1 % (36-47); Lymphocytes # 1.4 10^3/uL (0.8-4.8); Lymphocytes % 27.6 %; Mean Corpuscular HGB Conc 34.3 g/dL (30-55); Mean Corpuscular Hemoglobin 31.8 pg (27-33); Mean Corpuscular Volume 92.5 fl (85-98); Mean Platelet Volume 8.9 fL (7.4-10.4); Monocytes # 0.4 10^3/uL (0.2-0.9); Monocytes % 7.8 %; Neutrophils # 2.92 10^3/uL (1.8-7.7); Neutrophils % 58.8 %; Nucleated Red Blood Cells % 0 %; Platelet Count 248 10^3/cmm (157-399); Red Blood Count 4.66 10^6/uL (3.85-5.65); Red Cell Distribution Width 13.2 % (12.1-15.1); White Blood Count 4.97 10^3/uL (3.29-11.43)
[2024-10-29 11:16] LABS: Erythrocyte Sedimentation Rate 20 mm/hr (0-15)
[2024-10-29 11:31] LABS: Alanine Aminotransferase 17 U/L (0-33); Albumin Level 4.1 g/dL (3.5-5.2); Alkaline Phosphatase 54 U/L (35-105); Aspartate Amino Transferase 17 U/L (0-32); Globulin 2.8 g/dL (1.3-4.6); Total Bilirubin 0.5 mg/dL (0.15-1.2); Total Protein 6.9 g/dL (6.6-8.7)
== END 2024-10-29 10:16 | disposition home or self-care (01) ==
LOC: LAB 10:19
PROVIDERS: PCP Family Medicine; Visit Provider Internal Medicine Rheumatology
DX: Z79.899 Other long term (current) drug therapy (principal)
CPT/HCPCS: 36415; 80076; 82565; 85025; 85651; 86140

== ENCOUNTER → 2024-10-30 09:18 | Outpatient (BNVA) | payer MEDICARE, OTHER, SELFPAY | PROVIDERS: PCP Family Medicine; Visit Provider Internal Medicine Rheumatology | DX: M05.79 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 systems involvement (principal); Z79.899 Other long term (current) drug therapy; Z71.85 Encounter for immunization safety counseling | CPT/HCPCS: 99214 ==

== ENCOUNTER → 2025-02-21 09:41 | Outpatient (BNVA) | payer MEDICARE, OTHER, SELFPAY | PROVIDERS: PCP Family Medicine; Visit Provider Nurse Practitioner Family | DX: L82.1 Other seborrheic keratosis (principal); L57.8 Other skin changes due to chronic exposure to nonionizing radiation; L81.4 Other melanin hyperpigmentation; D22.39 Melanocytic nevi of other parts of face | CPT/HCPCS: 99213 ==

== ENCOUNTER 2025-02-25 09:06 | Outpatient (CLI) | payer MEDICARE, OTHER, SELFPAY ==
[2025-02-25 10:09] LABS: Hematocrit 42.8 % (36-47); Hemoglobin 14.50 g/dL (11.27-16.99); Mean Corpuscular HGB Conc 33.9 g/dL (30-55); Mean Corpuscular Hemoglobin 31.3 pg (27-33); Mean Corpuscular Volume 92.2 fl (85-98); Nucleated Red Blood Cells % 0 %; Platelet Count 228 10^3/cmm (157-399); Red Blood Count 4.64 10^6/uL (3.85-5.65); White Blood Count 4.70 10^3/uL (3.29-11.43)
[2025-02-25 10:36] LABS: Alanine Aminotransferase 17 U/L (0-33); Albumin Level 4.3 g/dL (3.5-5.2); Alkaline Phosphatase 52 U/L (35-105); Aspartate Amino Transferase 15 U/L (0-32); Globulin 2.8 g/dL (1.3-4.6); Total Protein 7.1 g/dL (6.6-8.7)
== END 2025-02-25 09:07 | disposition home or self-care (01) ==
LOC: LAB 09:08
PROVIDERS: PCP Family Medicine; Visit Provider Internal Medicine Rheumatology
DX: M05.79 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 systems involvement (principal); Z79.899 Other long term (current) drug therapy
CPT/HCPCS: 36415; 80076; 82565; 85025; 85651; 86140

== ENCOUNTER → 2025-03-11 13:48 | Outpatient (BNVA) | payer MEDICARE, OTHER, SELFPAY | PROVIDERS: PCP Family Medicine; Visit Provider Nurse Practitioner Family | DX: L82.1 Other seborrheic keratosis (principal); L57.8 Other skin changes due to chronic exposure to nonionizing radiation; L81.4 Other melanin hyperpigmentation; D22.39 Melanocytic nevi of other parts of face; Z08 Encounter for follow-up examination after completed treatment for malignant neoplasm; Z85.828 Personal history of other malignant neoplasm of skin; L82.0 Inflamed seborrheic keratosis; L29.89 Other pruritus; Z78.9 Other specified health status; L53.8 Other specified erythematous conditions; L91.8 Other hypertrophic disorders of the skin; R20.8 Other disturbances of skin sensation; D48.5 Neoplasm of uncertain behavior of skin; L57.0 Actinic keratosis | CPT/HCPCS: 11102; 17000; 17110; 99213 ==

== ENCOUNTER → 2025-03-12 13:52 | Outpatient (BNVA) | payer MEDICARE, OTHER, SELFPAY | PROVIDERS: PCP Family Medicine; Visit Provider Internal Medicine Rheumatology | DX: M05.79 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 systems involvement (principal); Z79.899 Other long term (current) drug therapy; Z71.85 Encounter for immunization safety counseling | CPT/HCPCS: 99214 ==

== ENCOUNTER → 2025-03-27 13:56 | Outpatient (BNVA) | payer MEDICARE, OTHER, SELFPAY | PROVIDERS: PCP Family Medicine; Visit Provider Dermatology | DX: C44.622 Squamous cell carcinoma of skin of right upper limb, including shoulder (principal) | CPT/HCPCS: 11602; 12032 ==